=== PATIENT | female | born 1930 | race Two or more races ===

== ENCOUNTER → 2017-10-13 | Outpatient (CLI) | payer MEDICARE ==
[~2017-10-13] MED LIST: ALEN70TA5 PO; AMPI500C2 PO; ASPI-496 PO; B2/V1TAB PO; CHOL2000 PO; FURO40TA6 PO; GABA300C10 PO; HYDR-3237 PO; IBUP200C5 PO; LISI10TA PO; OASIS TEARS EACHEYE; OMEP-110 PO; OXYC5TAB3 PO; POLY17PO5 PO; POTA10TA PO; REGADENOSON 0.4 MG/5 ML SYRINGE ONE; VITAMIN B12 PO
== END | disposition home or self-care (01) ==
LOC: MERGE 11:00 → RAD 11:14
PROVIDERS: ATTEND Internal Medicine Cardiovascular Disease
DX: I34.0 Nonrheumatic mitral (valve) insufficiency (principal)
CPT/HCPCS: 78452; 93017; A9502; J2785

== ENCOUNTER → 2017-10-20 | Outpatient (CLI) | payer MEDICARE ==
[~2017-10-20] MED LIST changes: -REGADENOSON 0.4 MG/5 ML SYRINGE ONE
== END | disposition home or self-care (01) ==
LOC: CVU 12:12 → MERGE 13:00
PROVIDERS: ATTEND Internal Medicine Cardiovascular Disease
DX: Z01.811 Encounter for preprocedural respiratory examination (principal); I34.0 Nonrheumatic mitral (valve) insufficiency; I51.7 Cardiomegaly; I10 Essential (primary) hypertension
CPT/HCPCS: 93306